=== PATIENT | male | born 1965 | race Two or more races ===

== ENCOUNTER 2019-06-11 19:28 | Inpatient (IN) | payer MEDICAID ==
[~2019-06-11] VITALS: Ht 177.8 cm; Wt 86.4 kg
[~2019-06-11 19:28] MED LIST: AMLO10TA PO; ASPI-611 PO; ATOR10TA70 PO; EMTR1TAB12 PO; FENO134C PO; RALT400T PO
[2019-06-11] MEDS ORDERED: BICT1TAB PO (20:09)
[2019-06-11 20:11] LABS: BASOPHILS # (AUTO) 0.1 X10'3 (0-0.2); BASOPHILS % (AUTO) 1.2 % (0-1); EOSINOPHILS # (AUTO) 0.1 X10'3 (0-0.9); EOSINOPHILS % (AUTO) 1.4 % (0-6); HEMATOCRIT 39.6 % (42.0-52.0); HEMOGLOBIN 13.8 g/dl (14.0-17.9); LYMPHOCYTES # (AUTO) 2.9 X10'3 (1.1-4.8); LYMPHOCYTES % (AUTO) 35.6 % (21-51); MEAN CORPUSCULAR HEMOGLOBIN 35.7 PG (27.0-31.0); MEAN CORPUSCULAR HGB CONC 34.8 g/dL (33.0-36.5); MEAN CORPUSCULAR VOLUME 102.5 FL (78-98); MEAN PLATELET VOLUME 5.9 FL (7.4-10.4); MONOCYTES # (AUTO) 0.8 X10'3 (0-0.9); MONOCYTES % (AUTO) 9.2 % (2-12); NEUTROPHILS # (AUTO) 4.3 X10'3 (1.8-7.7); NEUTROPHILS % (AUTO) 52.6 % (42-75); PLATELET COUNT 296 X10'3 (140-440); RED BLOOD COUNT 3.86 X10'6 (4.70-6.10); WHITE BLOOD COUNT 8.2 X10'3 (4.5-11.0)
[2019-06-11 20:24] LABS: ALANINE AMINOTRANSFERASE 52 U/L (12-78); ALBUMIN 3.6 G/DL (3.4-5.0); ALKALINE PHOSPHATASE 73 IU/L (46-116); ANION GAP 9 (8-16); ASPARTATE AMINO TRANSFERASE 44 U/L (10-37); BILIRUBIN,TOTAL 0.2 MG/DL (0.1-1.0); BLOOD UREA NITROGEN 16 MG/DL (7-18); BUN/CREATININE RATIO 15.7 (5.4-32.0); CALCIUM 8.9 MG/DL (8.5-10.1); CHLORIDE 106 MMOL/L (99-107); CREATININE 1.02 MG/DL (0.60-1.10); GLUCOSE 92 MG/DL (70-104); POTASSIUM 3.9 MMOL/L (3.5-5.1); SODIUM 140 MMOL/L (135-145); TOTAL CARBON DIOXIDE 24.6 MMOL/L (24-32); TOTAL PROTEIN 7.3 G/DL (6.4-8.2); eGFR 77 ML/MIN
[2019-06-11 20:28] LABS: PARTIAL THROMBOPLASTIN TIME 29 SECONDS (22-32)
[2019-06-11] MEDS ORDERED: nitroGLYCERIN 1gm ointment UD TP ONE (20:50)
[2019-06-11] MEDS ORDERED: heparin 10,000 units/1 ML INJ IV ONE ×2 (21:00→21:05)
[2019-06-11] MEDS ORDERED: heparin 10,000 units/1 ML INJ IV PRN (21:00)
[2019-06-11] MEDS ORDERED: magnesium hydroxide 30ml (MOM) UD suspension PO PRN (21:25)
[2019-06-11] MEDS ORDERED: mag hydrox/Alum hydrox/simeth 30ml oral suspension PO PRN (21:25)
[2019-06-11] MEDS ORDERED: ondansetron/PF 4mg/2ml inj IV PRN (21:25)
[2019-06-11] MEDS ORDERED: acetaminophen 325mg tablet PO PRN (21:25)
[2019-06-11] MEDS ORDERED: normal saline 1000ml 1,000 ML IV SCH (21:25)
[2019-06-11] MEDS: heparin 25,000 UNIT/250ml bag 250 ML IV SCH (22:02)
[2019-06-11 22:44] VITALS: BP 130/88
--- NOTE | 2019-06-11 22:46 | NUR ---
pt arrived to floor via [place], ambulated to bed. dry scaled area with surrounding redness noted of left ankle, pt stated this is ongoing issue that comes and goes. on initial assessment, pt had no chest pain, shortly after arrived to floor he complained again of chest pain. he has nitro paste on. oriented pt to unit. bed low, locked, call light in reach. rec'd report from Mani WRIGHT in ER
--- NOTE | 2019-06-11 23:01 | NUR ---
chest pain resolved before EKG could be done. pt now up to bathroom.
[2019-06-12] VITALS (12 sets, daily range): BP systolic 117–139; BP diastolic 70–92
[2019-06-12 05:10] LABS: BASOPHILS % (AUTO) 0.5 % (0-1); EOSINOPHILS # (AUTO) 0.1 X10'3 (0-0.9); EOSINOPHILS % (AUTO) 1.3 % (0-6); HEMATOCRIT 39.8 % (42.0-52.0); HEMOGLOBIN 13.7 g/dl (14.0-17.9); LYMPHOCYTES % (AUTO) 23.7 % (21-51); MEAN CORPUSCULAR HEMOGLOBIN 35.1 PG (27.0-31.0); MEAN CORPUSCULAR HGB CONC 34.4 g/dL (33.0-36.5); MEAN CORPUSCULAR VOLUME 102.1 FL (78-98); MONOCYTES # (AUTO) 0.8 X10'3 (0-0.9); MONOCYTES % (AUTO) 8.9 % (2-12); NEUTROPHILS # (AUTO) 5.6 X10'3 (1.8-7.7); NEUTROPHILS % (AUTO) 65.6 % (42-75); PLATELET COUNT 294 X10'3 (140-440); RED BLOOD COUNT 3.89 X10'6 (4.70-6.10); WHITE BLOOD COUNT 8.5 X10'3 (4.5-11.0)
[2019-06-12 05:27] LABS: ALANINE AMINOTRANSFERASE 45 U/L (12-78); ALBUMIN 3.2 G/DL (3.4-5.0); ALBUMIN/GLOBULIN RATIO 0.9 (1.1-1.5); ALKALINE PHOSPHATASE 68 IU/L (46-116); ANION GAP 10 (8-16); ASPARTATE AMINO TRANSFERASE 37 U/L (10-37); BILIRUBIN,TOTAL 0.4 MG/DL (0.1-1.0); BLOOD UREA NITROGEN 12 MG/DL (7-18); BUN/CREATININE RATIO 11.7 (5.4-32.0); CALCIUM 8.5 MG/DL (8.5-10.1); CHLORIDE 107 MMOL/L (99-107); CREATININE 1.03 MG/DL (0.60-1.10); GLUCOSE 98 MG/DL (70-104); POTASSIUM 3.7 MMOL/L (3.5-5.1); SODIUM 141 MMOL/L (135-145); TOTAL CARBON DIOXIDE 24.3 MMOL/L (24-32); TOTAL PROTEIN 6.7 G/DL (6.4-8.2); eGFR 76 ML/MIN
[2019-06-12] MEDS: heparin 25,000 UNIT/250ml bag 250 ML IV SCH (05:41)
--- NOTE | 2019-06-12 06:00 | NUR ---
Patient in room PCU 3015. I have received report from KYLE Arambula and had the opportunity to ask questions and assume patient care.
--- NOTE | 2019-06-12 06:29 | NUR ---
Problems reprioritized. Patient report given, questions answered & plan of care reviewed with Rebecca and Tamica RNs. pt rested through the night. no complaints of chest pain after admit
--- NOTE | 2019-06-12 06:30 | NUR ---
Patient in room PCU 3015. I have received report from Tyesha WRIGHT and had the opportunity to ask questions and assume patient care. Pt awake and alert in bed. All needs met at this time.
[2019-06-12] MEDS ORDERED: atorvastatin 10mg tablet PO SCH (08:00)
[2019-06-12] MEDS ORDERED: aspirin 81mg tablet.DR PO SCH (08:00)
[2019-06-12] MEDS ORDERED: amLODIPine 5mg tablet PO SCH (08:00)
[2019-06-12] MEDS ORDERED: regadenoson 0.4mg/5ml syringe IV ONE (09:10)
[2019-06-12] MEDS ORDERED: magnesium Cl slow-release 64mg tablet PO PRN (09:10)
[2019-06-12] MEDS ORDERED: nitroGLYCERIN 0.4mg SUBLingual tab SL PRN (09:10)
[2019-06-12] MEDS ORDERED: potassium CL 10mEq/100ml bag 100 ML IV PRN (09:10)
[2019-06-12] MEDS ORDERED: potassium Cl 20 mEq SR tablet PO PRN ×2 (09:10)
[2019-06-12] MEDS ORDERED: aminophylline 250mg/10ml inj. IV PRN (09:10)
[2019-06-12] MEDS ORDERED: metoprolol tartrate 1mg/ml inj IV PRN (09:10)
[2019-06-12] MEDS ORDERED: magnesium 4gm in 100ml NS 100 ML IV PRN (09:10)
--- NOTE | 2019-06-12 12:00 | NUR ---
Pt transported out of room for kasie scan.
--- NOTE | 2019-06-12 13:30 | NUR ---
Pt returned to room after Jyothi scan.
--- NOTE | 2019-06-12 15:42 | NUR ---
Paged Dr. Fiore re jyothi scan. PAGER ID: [phone] MESSAGE: Ivan Kramer in [phone]. Jyothi scan has resulted. Thanks! Rebecca WRIGHT [phone]
[2019-06-12] MEDS ORDERED: CARV3.12 PO (16:12)
--- NOTE | 2019-06-12 16:55 | NUR ---
Pt stable for discharge per MD orders. IV d/c'd , catheter intact. Medication instructions given, pt verbalized understanding. New rx called into [facility] on [address]. Tele box retuned to telegraph office telephone clerk. All questions and concerns addressed. Pt ambulated ad kang off unit.
[2019-06-12] MEDS ORDERED: heparin, porcine 5000 units/ml vial SQ SCH (20:00)
== END 2019-06-12 17:12 | disposition home or self-care (01) | DRG 198 ==
LOC: ER 19:28 → PCU 3S 23:03 → CMPBEDREQ 23:05
PROVIDERS: ADMIT Internal Medicine; ATTEND Family Medicine
PROC: 4A02XM4 Measurement of Cardiac Total Activity, External Approach (ICD-10-PCS; principal; 2019-06-12)
PROC: 3E033HZ Introduction of Radioactive Substance into Peripheral Vein, Percutaneous Approach (ICD-10-PCS; 2019-06-12)
DX: R07.89 Other chest pain (principal); I25.10 Atherosclerotic heart disease of native coronary artery without angina pectoris; B20 Human immunodeficiency virus [HIV] disease; E78.5 Hyperlipidemia, unspecified; F17.290 Nicotine dependence, other tobacco product, uncomplicated; I10 Essential (primary) hypertension; I25.2 Old myocardial infarction; Z95.5 Presence of coronary angioplasty implant and graft
CPT/HCPCS: 36415; 71045; 78452; 80053; 84484; 85025; 85610; 85730; 87081; 93005; 93017; 96374; 99285; A9500; G0378; J0280; J1644; J2785; J7030

== ENCOUNTER 2019-09-20 02:33 | Emergency (ER) | payer MEDICAID ==
[~2019-09-20] VITALS: Ht 177.8 cm; Wt 90.9 kg
[~2019-09-20 02:33] MED LIST changes: +BICT1TAB PO; +CARV3.12 PO; -EMTR1TAB12 PO; -FENO134C PO; -RALT400T PO
[2019-09-20 02:53] VITALS: BP 153/107
[2019-09-20] MEDS ORDERED: proparacaine 0.5% ophthalmic drops 15ml RIGHTEYE ONE (03:55)
[2019-09-20] MEDS ORDERED: TETanus/Pertussis (Acell)/Diphther VAC/PF (Tdap-Adult) 0.5ml syringe IMVAC ONE (05:15)
[2019-09-20] MEDS ORDERED: ERYT1OIN6 RIGHTEYE (05:15)
== END 2019-09-20 06:00 | disposition home or self-care (01) ==
LOC: ER 02:33
DX: S05.01XA Injury of conjunctiva and corneal abrasion without foreign body, right eye, initial encounter (principal); J32.0 Chronic maxillary sinusitis; I10 Essential (primary) hypertension; I25.2 Old myocardial infarction; Z98.61 Coronary angioplasty status; Z79.82 Long term (current) use of aspirin; Z79.2 Long term (current) use of antibiotics; Z79.899 Other long term (current) drug therapy; X58.XXXA Exposure to other specified factors, initial encounter; Y93.89 Activity, other specified; Y92.89 Other specified places as the place of occurrence of the external cause; Y99.8 Other external cause status
CPT/HCPCS: 90471; 90715; 99283